=== PATIENT | male | born 2000 | race Caucasian/White ===

== ENCOUNTER 2020-03-29 14:38 | Emergency (ER) | payer SELFPAY ==
[~2020-03-29] VITALS: Ht 172.7 cm; Wt 67.3 kg
[2020-03-29 14:59] LABS: BASOPHILS # (AUTO) 0.1 X10'3 (0-0.2); BASOPHILS % (AUTO) 0.8 % (0-1); EOSINOPHILS % (AUTO) 0.5 % (0-6); HEMATOCRIT 46.8 % (42.0-52.0); HEMOGLOBIN 15.8 g/dl (14.0-17.9); LYMPHOCYTES # (AUTO) 2.2 X10'3 (1.1-4.8); LYMPHOCYTES % (AUTO) 32.7 % (21-51); MEAN CORPUSCULAR HGB CONC 33.8 g/dL (33.0-36.5); MEAN CORPUSCULAR VOLUME 85.7 FL (78-98); MEAN PLATELET VOLUME 8.6 FL (7.4-10.4); MONOCYTES # (AUTO) 0.6 X10'3 (0-0.9); MONOCYTES % (AUTO) 8.7 % (2-12); NEUTROPHILS # (AUTO) 3.9 X10'3 (1.8-7.7); NEUTROPHILS % (AUTO) 57.3 % (42-75); PLATELET COUNT 257 X10'3 (140-440); RED BLOOD COUNT 5.46 X10'6 (4.70-6.10); RED CELL DISTRIBUTION WIDTH 12.7 % (11.5-14.5); WHITE BLOOD COUNT 6.8 X10'3 (4.5-11.0)
[2020-03-29 15:15] LABS: ALANINE AMINOTRANSFERASE 22 U/L (12-78); ALBUMIN 4.5 G/DL (3.4-5.0); ALBUMIN/GLOBULIN RATIO 1.5 (1.1-1.5); ALKALINE PHOSPHATASE 84 IU/L (20-180); ANION GAP 7 (8-16); ASPARTATE AMINO TRANSFERASE 14 U/L (10-37); BILIRUBIN,TOTAL 2.2 MG/DL (0.1-1.0); BLOOD UREA NITROGEN 12 MG/DL (7-18); BUN/CREATININE RATIO 10.9 (5.4-32.0); CALCIUM 8.9 MG/DL (8.5-10.1); CHLORIDE 104 MMOL/L (99-107); GLUCOSE 102 MG/DL (70-104); LIPASE 77 U/L (73-393); POTASSIUM 3.4 MMOL/L (3.5-5.1); SODIUM 140 MMOL/L (135-145); TOTAL CARBON DIOXIDE 29.2 MMOL/L (24-32); TOTAL PROTEIN 7.6 G/DL (6.4-8.2); eGFR 86 ML/MIN
[2020-03-29 16:11] LABS: CLARITY,URINE TURBID (Clear); COLOR,URINE YELLOW (Yellow); GLUCOSE, URINE NEGATIVE (Neg); KETONES,URINE NEGATIVE (Neg); LEUKOCYTE ESTERASE ,URINE NEGATIVE (Neg); NITRITES, URINE NEGATIVE (Neg); OCCULT BLOOD,URINE LARGE (Neg); PH,URINE 7.5 (4.8-8.0); PROTEIN,URINE TRACE mg/dl (Neg); UROBILINOGEN,URINE >=8.0 E.U/dL (0.2-1.0)
[2020-03-29 16:13] VITALS: BP 129/83
[2020-03-29 16:18] LABS: UA COLLECTION TYPE CLN CATCH MIDSTREAM
[2020-03-29 16:19] LABS: RBC,URINE TNTC /HPF (0-2)
[2020-03-29 16:21] LABS: BACTERIA,URINE 1+ /HPF (Neg); MUCUS STRANDS MODERATE /LPF (Neg); SQUAMOUS EPITHELIAL CELL,UR FEW /LPF (FEW); WBC,URINE 50-100 /HPF (0-4)
[2020-03-29 16:22] LABS: AMORPHOUS PHOSPHATES 3+
[2020-03-29] MEDS ORDERED: ONDA4TAB6 PO (17:05)
[2020-03-29] MEDS ORDERED: HYDR-4353 PO (17:05)
[2020-03-29] MEDS ORDERED: LEVO500T2 PO (17:05)
[2020-03-29] MEDS ORDERED: KETO10TA2 PO (17:05)
[2020-03-29] MEDS ORDERED: PHEN-824 PO (22:24)
[2020-03-29] MEDS ORDERED: FLO0.4C PO (22:24)
[2020-03-29] MEDS ORDERED: OXYB5TAB16 PO (22:24)
== END 2020-03-29 17:29 | disposition home or self-care (01) ==
LOC: ER 14:38
DX: N20.0 Calculus of kidney (principal); K59.00 Constipation, unspecified; R10.84 Generalized abdominal pain; Z79.2 Long term (current) use of antibiotics; Z79.899 Other long term (current) drug therapy
CPT/HCPCS: 36415; 74176; 80053; 81001; 83605; 83690; 85025; 87088; 99284

== ENCOUNTER 2020-03-29 21:52 | Emergency (ER) | payer SELFPAY ==
[~2020-03-29] VITALS: Ht 172.7 cm; Wt 67.3 kg
[~2020-03-29 21:52] MED LIST: HYDR-4353 PO; KETO10TA2 PO; LEVO500T2 PO; ONDA4TAB6 PO
[2020-03-29] MEDS ORDERED: ondansetron/PF 4mg/2ml inj IV ONE (22:00)
[2020-03-29] MEDS ORDERED: levoFLOXACIN-Levaquin 500mg/D5 100 ML IV ONE (22:00)
[2020-03-29] MEDS ORDERED: ketorolac trometh. 30mg/ml inj. IV ONE (22:00)
[2020-03-29] MEDS ORDERED: normal saline 1000ML IV soln IVB ONE (22:00)
--- NOTE | 2020-03-29 22:07 | NUR ---
PER PT MOTHER [phone], PT HAD NORCO AT HOME AROUND 1815 TONIGHT AND IBUPROFEN 1.5 HOURS AGO
[2020-03-29] MEDS: HYDROmorphone inj. 0.5 MG/0.5 ML DISP.SYRIN IV PRN ×2 (22:22→23:06)
[2020-03-29] MEDS ORDERED: OXYB5TAB16 PO (22:24)
[2020-03-29] MEDS ORDERED: PHEN-824 PO (22:24)
[2020-03-29] MEDS ORDERED: FLO0.4C PO (22:24)
[2020-03-29] MEDS ORDERED: diazepam inj 5 MG/ML inj. IV ONE (22:25)
--- NOTE | 2020-03-29 23:08 | NUR ---
pt remains in severe paiin and states no relief from the meds given 45 min ago (dilaudid and toradol). given 2nd dose of dilaudid 1 mg just now. reprots the pain is 9 out of 10 and in the right "kidney" back area. bp 157/100
--- NOTE | 2020-03-29 23:14 | NUR ---
pt reports his mom esau him here and she is waiting outside
[2020-03-29] MEDS ORDERED: fentaNYL/PF 50MCG/1 ML 2ML syringe IV ONE (23:50)
--- NOTE | 2020-03-29 23:50 | NUR ---
DR. MICHEL UPDATED THAT PT AGAIN IN SEVERE PAIN AND BP 162/68. VERBAL FOR FENTANYL 100 MCG X1 NOW.
--- NOTE | 2020-03-30 01:47 | NUR ---
i spoke with pts mother, good, and updated about the plan of care and dc inistructions. Pt currently sleeping and with stable vs.
[2020-03-30 01:56] VITALS: BP 136/68
[2020-03-30] MEDS ORDERED: ondansetron 4mg rapidly disintigrating tab PO ONE (02:00)
--- NOTE | 2020-03-30 02:12 | NUR ---
PT DC READY . UPON AWAKENING, PT VOMITING ANF VERY NAUSEAUS. GIVEN FRANKLYN ODT AND VOMITED IT UP. VERBAL FROM [facility] FOR IM ZO[facility].
[2020-03-30] MEDS ORDERED: ondansetron/PF 4mg/2ml inj IM ONE (02:15)
== END 2020-03-30 02:26 | disposition home or self-care (01) ==
LOC: ER 21:53
DX: N20.0 Calculus of kidney (principal); N39.0 Urinary tract infection, site not specified; M54.5 Low back pain; Z79.899 Other long term (current) drug therapy
CPT/HCPCS: 96365; 96366; 96372; 96375; 96376; 99285; J1170; J1885; J1956; J2405; J3010; J3360; J7030; 96361; 99284

== ENCOUNTER 2020-04-21 22:41 | Emergency (ER) | payer BC ==
[~2020-04-21] VITALS: Ht 172.7 cm; Wt 68.2 kg
[~2020-04-21 22:41] MED LIST changes: +FLO0.4C PO; -LEVO500T2 PO; +OXYB5TAB16 PO; +PHEN-824 PO
[2020-04-21 22:45] VITALS: BP 140/86
[2020-04-21 23:16] LABS: CLARITY,URINE CLEAR (Clear); COLOR,URINE YELLOW (Yellow); GLUCOSE, URINE NEGATIVE (Neg); KETONES,URINE NEGATIVE (Neg); LEUKOCYTE ESTERASE ,URINE NEGATIVE (Neg); NITRITES, URINE NEGATIVE (Neg); OCCULT BLOOD,URINE NEGATIVE (Neg); PH,URINE 6.5 (4.8-8.0); PROTEIN,URINE NEGATIVE (Neg)
[2020-04-21 23:24] LABS: UA COLLECTION TYPE CLN CATCH MIDSTREAM
[2020-04-21] MEDS ORDERED: CEPH250T PO (23:43)
[2020-04-21] MEDS ORDERED: PHEN-824 PO (23:43)
[2020-04-21 23:58] LABS: BASOPHILS % (AUTO) 0.9 % (0-1); EOSINOPHILS # (AUTO) 0.1 X10'3 (0-0.9); EOSINOPHILS % (AUTO) 1.9 % (0-6); HEMATOCRIT 43.7 % (42.0-52.0); HEMOGLOBIN 15.2 g/dl (14.0-17.9); LYMPHOCYTES # (AUTO) 0.7 X10'3 (1.1-4.8); MEAN CORPUSCULAR HEMOGLOBIN 29.8 PG (27.0-31.0); MEAN CORPUSCULAR HGB CONC 34.9 g/dL (33.0-36.5); MEAN CORPUSCULAR VOLUME 85.4 FL (78-98); MEAN PLATELET VOLUME 8.9 FL (7.4-10.4); MONOCYTES # (AUTO) 0.7 X10'3 (0-0.9); MONOCYTES % (AUTO) 11.9 % (2-12); NEUTROPHILS % (AUTO) 72.3 % (42-75); PLATELET COUNT 175 X10'3 (140-440); RED BLOOD COUNT 5.11 X10'6 (4.70-6.10); RED CELL DISTRIBUTION WIDTH 12.5 % (11.5-14.5); WHITE BLOOD COUNT 5.5 X10'3 (4.5-11.0)
[2020-04-22 00:07] LABS: ALANINE AMINOTRANSFERASE 30 U/L (12-78); ALBUMIN 4.1 G/DL (3.4-5.0); ALBUMIN/GLOBULIN RATIO 1.5 (1.1-1.5); ALKALINE PHOSPHATASE 85 IU/L (20-180); ANION GAP 4 (8-16); ASPARTATE AMINO TRANSFERASE 12 U/L (10-37); BILIRUBIN,TOTAL 0.5 MG/DL (0.1-1.0); BLOOD UREA NITROGEN 16 MG/DL (7-18); BUN/CREATININE RATIO 17.2 (5.4-32.0); CHLORIDE 105 MMOL/L (99-107); CREATININE 0.93 MG/DL (0.60-1.10); GLUCOSE 90 MG/DL (70-104); POTASSIUM 3.8 MMOL/L (3.5-5.1); SODIUM 139 MMOL/L (135-145); TOTAL CARBON DIOXIDE 29.9 MMOL/L (24-32); TOTAL PROTEIN 6.8 G/DL (6.4-8.2); eGFR > 90 ML/MIN
== END 2020-04-22 00:15 | disposition home or self-care (01) ==
LOC: ER 22:42
DX: R30.0 Dysuria (principal); R10.84 Generalized abdominal pain; Z79.2 Long term (current) use of antibiotics; Z79.899 Other long term (current) drug therapy
CPT/HCPCS: 36415; 80053; 81003; 85025; 99283

== ENCOUNTER 2023-08-01 03:38 | Emergency (ER) | payer BC, OTHER ==
[~2023-08-01] VITALS: Ht 167.6 cm; Wt 85.0 kg
[~2023-08-01 03:38] MED LIST changes: -FLO0.4C PO; -HYDR-4353 PO
[2023-08-01 03:42] VITALS: BP 153/96; PULSE 85; RESP 18; TEMP 98; O2SAT 99
[2023-08-01 04:03] LABS: BILIRUBIN,URINE NEGATIVE (Neg); CLARITY,URINE CLEAR (Clear); COLOR,URINE YELLOW (Yellow); GLUCOSE, URINE NEGATIVE (Neg); KETONES,URINE NEGATIVE (Neg); LEUKOCYTE ESTERASE ,URINE NEGATIVE (Neg); NITRITES, URINE NEGATIVE (Neg); OCCULT BLOOD,URINE NEGATIVE (Neg); PROTEIN,URINE NEGATIVE (Neg); UA COLLECTION TYPE CLN CATCH MIDSTREAM; UROBILINOGEN,URINE 0.2 E.U/dL (0.2-1.0)
[2023-08-01] MEDS ORDERED: PHEN-716 PO (04:37)
[2023-08-04 14:36] LABS: CHLAMYDIA TRACHOMATIS, NAA Negative (Negative)
== END 2023-08-01 05:01 | disposition home or self-care (01) ==
LOC: ER 03:40
DX: R30.0 Dysuria (principal); Z87.442 Personal history of urinary calculi; Z87.440 Personal history of urinary (tract) infections
CPT/HCPCS: 36415; 81003; 87491; 99283